=== PATIENT | male | born 1940 | race Caucasian/White ===

== ENCOUNTER → 2016-11-24 | Outpatient (CLI) | payer OTHER, BC ==
[~2016-11-24] MED LIST: ASPEC325 PO; BIOT1TAB5 PO; CLR10 PO; CYAN10005 PO; FLNIN NAE; LEVO88TA3 PO; LISI-725 PO; MOME0.1O TOP; MRLP17 PO; NTRGSL/4 UT; PRLSR20 PO; SIMV40TA2 PO
== END | disposition home or self-care (01) ==
LOC: C.RDSM 08:18
PROVIDERS: ATTEND Physical Medicine & Rehabilitation Sports Medicine
DX: M16.0 Bilateral primary osteoarthritis of hip (principal)

== ENCOUNTER → 2016-12-31 | Day surgery (SDC) | payer OTHER, BC ==
[2016-12-11 11:42] VITALS: Ht 185.4 cm; Wt 88.6 kg
[~2016-12-31] VITALS: Ht 185.4 cm; Wt 88.6 kg
[~2016-12-31] MED LIST changes: +EpINEphrine INJ 1MG/ML AMP 1 MG/ML AMP ONE; +IOPAMIDOL INJ 61% 15 ML VIAL ONE; +LIDOCAINE 4% OP SOLN DROP CHARGE ONE; +LIDOCAINE HCL 1% MPF 2 ML VIAL ONE; +LIDOCAINE HCL 1% MPF 5 ML VIAL ONE; +MOXIFLOXACIN OPH SOLN PER DROP CHARGE ONE; +POVIDONE-IODINE OP SOLN 30 ML BTL ONE; +SODIUM CHLORIDE 0.9% INJ 10 ML VIAL ONE; +TOBRAMYCIN/DEXAMETHASONE OPH OINT PER APPLN CHARGE ONE
--- NOTE | 2016-12-31 12:36 | History & Physical Bridge - [place] ---
H&P Re-Evaluation Bridge Note: I have examined the patient, reviewed the History & Physical and in the interval since the performance of the History & Physical I have noted the following changes of clinical significance: No changes noted
[2016-12-31 13:03] VITALS: TEMP 37.3
--- NOTE | 2016-12-31 13:07 | Discharge Instructions ---
Discharge Instructions Date of Service December 31, 2016. Visit Reason for Visit: Lumbar Spinal Stenosis Discharge Discharge Diagnosis / Problem: left leg pain Discharge Goals Goal(s): Decrease discomfort, Improve function Medications Stopped Medications Name(s): asa stopped last dose on thursday. Activity Recommendations Activity Limitations: resume your previous activity Anesthesia . Post Anesthesia Instructions: If you have had General Anesthesia or IV Sedation: * Do not drive today. * Resume driving when surgeon permits. * Do not make important decisions or sign legal documents today. * Call surgeon for: 1. Temperature elevations greater than 101 degrees F. 2. Uncontrollable pain. 3. Excessive bleeding. 4. Persistent nausea and vomiting. 5. Medication intolerance (nausea, vomiting or rash). * For nausea and vomiting use only clear liquids such as: tea, soda, bouillon until nausea subsides, then gradually increase diet as tolerated. * If you have any concerns or questions, call your surgeon's office. If physician is unavailable and it is an emergency, call 911 or go to the nearest emergency room. . Diet Recommendations Recommended Home Diet: resume previous diet Procedures Procedures Performed: Lumbar Epidural Steroid Injection Pending Studies Studies pending at discharge: no Medical Emergencies . Who to Call and When: Medical Emergencies: If at any time you feel your situation is an emergency, please call 911 immediately. . Non-Emergent Contact Non-Emergency issues call your: Specialist . . "Provider Documentation" section prepared by Ravi Nair. .
[2016-12-31 13:13] VITALS: BP 152/76; PULSE 63; O2SAT 99
--- NOTE | 2016-12-31 14:19 | OPERATIVE REPORT ---
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 POSTOPERATIVE DIAGNOSIS: Same. PROCEDURE: Left paramedian L4-L5 interlaminar epidural steroid injection under fluoroscopic guidance. SURGEON: Dr. Ravi Nair. INDICATIONS: The patient is a 76-year-old white male who presents today for an epidural injection. He has had similar radicular complaints down the right leg and responded to an epidural a year or more ago without recurrence of this pain. He reports that this pain is similar in nature, but it on the left side and its more on the medial aspect of the thigh and not the lateral aspect. He presents today for an epidural injection as he has not responded to conservative treatments including ongoing core strengthening program. PHYSICAL EXAMINATION: Pleasant male seated comfortably. He is nontender to palpation of the lower lumbar spine. He has no focal weakness. Negative seated straight leg raises. He has intact sensation distally. CONSENT: Verbal and written consent was obtained from the patient. Risks and benefits were reviewed. Risks include but are not limited to epidural abscess, epidural hematoma, allergic reaction, dural puncture. The patient wishes to proceed. PROCEDURE: The patient was taken back in the special procedures room of the [facility] where he was maintained in a prone position. Backside was cleansed with Betadine x3 and a dry sterile dressing was applied. Fluoroscope was used to identify the L4-L5 interlaminar space. Overlying skin on the left side was anesthetized with 4 mL of lidocaine 1% with a 25 gauge 1.5-inch needle. A 22-gauge 3.5 inch spinal needle was then directed towards the intralaminar space. It was advanced under lateral fluoroscopic guidance. Loss of resistance was noted at a depth of 5.5 cm. Isovue 300 contrast 3/4 of mL was injected in which demonstrated epidural uptake pattern which was confirmed with both AP and lateral views. He then underwent injection after negative aspiration of 40 mg of Depo-Medrol and 4 mL of preservative free sodium chloride. Injection was well tolerated and reproduced a familiar transient discomfort into the medial thigh. DISPOSITION: 1. The patient is taken out into the discharge recovery area where he will be discharged home once discharge criteria have been met. 2. Follow up in the [facility] office in 2-4 weeks. I attest to the content of the Intraoperative Record and any orders documented therein. Any exceptio ns are noted below.
== END | disposition home or self-care (01) ==
LOC: X.SURG 12:16
PROVIDERS: ATTEND Physical Medicine & Rehabilitation
DX: M51.86 Other intervertebral disc disorders, lumbar region (principal); M48.06 Spinal stenosis, lumbar region; I10 Essential (primary) hypertension; E78.5 Hyperlipidemia, unspecified; K21.9 Gastro-esophageal reflux disease without esophagitis; I25.10 Atherosclerotic heart disease of native coronary artery without angina pectoris; Z90.49 Acquired absence of other specified parts of digestive tract; Z96.652 Presence of left artificial knee joint; Z95.1 Presence of aortocoronary bypass graft; Z79.82 Long term (current) use of aspirin; Z82.49 Family history of ischemic heart disease and other diseases of the circulatory system; Z82.3 Family history of stroke

== ENCOUNTER → 2017-07-02 | Outpatient (CLI) | payer OTHER, BC ==
[~2017-07-02] MED LIST changes: -EpINEphrine INJ 1MG/ML AMP 1 MG/ML AMP ONE; -IOPAMIDOL INJ 61% 15 ML VIAL ONE; -LIDOCAINE 4% OP SOLN DROP CHARGE ONE; -LIDOCAINE HCL 1% MPF 2 ML VIAL ONE; -LIDOCAINE HCL 1% MPF 5 ML VIAL ONE; -MOXIFLOXACIN OPH SOLN PER DROP CHARGE ONE; -MRLP17 PO; -NTRGSL/4 UT; -POVIDONE-IODINE OP SOLN 30 ML BTL ONE; -SODIUM CHLORIDE 0.9% INJ 10 ML VIAL ONE; -TOBRAMYCIN/DEXAMETHASONE OPH OINT PER APPLN CHARGE ONE
--- NOTE | 2017-07-02 14:35 | DIAGNOSTIC IMAGING REPORT ---
LUMBAR SPINE MIN 4 VIEWS HISTORY: 77 years-old Male LUMBAR STENOSIS L3-L4 lumbar stenosis COMPARISON: Lumbar spine radiographs 06/22/2014 TECHNIQUE: Frontal and lateral views of lumbar spine. Lateral views obtained in flexion, extension and neutral position for a total of 4 images FINDINGS: 5 nonrib-bearing lumbar-type vertebral segments are present. There is straightening of the normal lumbar lordosis.There is 6 mm retrolisthesis L5 on S1 and 2 mm anterolisthesis L3 on L4. Moderate intervertebral disc space narrowing at L3-L4, L4-L5 and L5-S1 with moderate facet arthropathy. 35% anterior endplate compression of T12 appears unchanged. No acute compression of bony. Intervertebral disc space narrowing noted within the lower thoracic spine. No acute fracture. No change in alignment with flexion or extension. IMPRESSION: 1. No acute fracture of the lumbar spine. 2. Remote compression deformity of T12. 3. Moderate intervertebral disc space narrowing and facet arthropathy of the lower lumbar spine. The above report was generated using voice recognition software. It may contain grammatical, syntax or spelling errors. Electronically signed by: Raymond Hernández M.D. 07/02/2017 2:34 PM Dictated Date/Time: 07/02/2017 2:25 PM
== END | disposition home or self-care (01) ==
LOC: C.RDSM 14:06
PROVIDERS: ATTEND Neurological Surgery
DX: M48.061 Spinal stenosis, lumbar region without neurogenic claudication (principal); M53.84 Other specified dorsopathies, thoracic region

== ENCOUNTER → 2017-12-22 | Outpatient (CLI) | payer OTHER, BC | END | disposition home or self-care (01) | LOC: C.PATHSPEC 17:15 | PROVIDERS: ATTEND Physician Assistant | DX: L82.1 Other seborrheic keratosis (principal) ==

== ENCOUNTER 2018-11-02 10:27 | Inpatient (IN) ==
[2018-11-02] MEDS ORDERED: ONDANSETRON INJ 2 MG/ML 2 ML VIAL IV STA (10:40)
[2018-11-02] MEDS ORDERED: SODIUM CHLORIDE 0.9% 1000ML 2,000 ML IV ONE (10:40)
[2018-11-02] MEDS ORDERED: MoRPHine SULFATE 10 MG/ML CARP/VIAL IV STA (10:40)
[2018-11-02 10:47] LABS: Hematocrit (blood only) 40.8 % (42-52); Hemoglobin 14.1 g/dL (14.0-18.0); Mean Corpuscular Hgb Conc 34.6 g/dL (32-36); Mean Platelet Volume 10.4 fL (7.4-10.4); Platelet Count 152 K/uL (130-400); RDW Standard Deviation 45.5 fL (36.4-46.3); Red Blood Count 4.25 M/uL (4.7-6.1); White Blood Count 12.45 K/uL (4.8-10.8)
[2018-11-02 10:56] LABS: INR 1.1 (0.9-1.1); Prothrombin Time 11.2 Seconds (9.0-12.0)
[2018-11-02 11:10] LABS: Albumin Level 3.8 gm/dl (3.4-5.0); BUN Creatinine Ratio 12.6 (10-20); Calcium 9.7 mg/dl (8.5-10.1); Est GFR (African American) 32.6; Est GFR (Non-African American) 28.2; Potassium 3.2 mmol/L (3.5-5.1)
[2018-11-02 11:15] LABS: Basophils # (auto) 0.02 K/uL (0-0.2); Basophils % (auto) 0.2 %; Eosinophils # (auto) 0.21 K/uL (0-0.5); Eosinophils % (auto) 1.7 %; Immature Granulocytes # (auto) 0.05 K/uL (0.00-0.02); Immature Granulocytes % (auto) 0.4 %; Lymphocytes # (auto) 3.85 K/uL (1.2-3.4); Lymphocytes % (auto) 30.9 %; Monocytes # (auto) 0.23 K/uL (0.11-0.59); Monocytes % (auto) 1.8 %; Neutrophils # (auto) 8.09 K/uL (1.4-6.5)
[2018-11-02 11:15] LABS: Appearance Urine Clear (Clear); Bilirubin Urine Negative (Negative); Blood Urine Negative (Negative); Color Urine Yellow; Glucose Urine UA Negative (Negative); Ketones Urine Negative (Negative); Leukocyte Esterase Urine Negative (Negative); Nitrite Urine Negative (Negative); Protein Urine Negative (Negative); Specific Gravity Urine 1.016 (1.000-1.030); Urobilinogen Urine Negative (Negative); pH Urine 5.5 (4.5-7.5)
[2018-11-02 11:19] LABS: Albumin Globulin Ratio 0.8 (0.9-2); Bilirubin,Total 0.8 mg/dl (0.2-1); Globulin 4.7 gm/dl (2.5-4.0); Total Protein 8.5 gm/dl (6.4-8.2); Troponin I 0.065 ng/ml (0-0.045)
[2018-11-02] MEDS ORDERED: HYDROmorphone INJ 0.5 MG/0.5 ML SYR IV STA (11:38)
[2018-11-02] MEDS ORDERED: ASPIRIN CHEW 324 MG PO STA (12:39)
[2018-11-02] MEDS ORDERED: TAP WATER ENEMA PR ONE (13:09)
--- NOTE | 2018-11-02 13:26 | CT Scan Report ---
CT OF THE ABDOMEN AND PELVIS WITHOUT CONTRAST CLINICAL HISTORY: Severe abdominal pain. COMPARISON STUDY: No previous studies for comparison. TECHNIQUE: Axial images of the abdomen and pelvis were obtained without IV contrast. Images were revi ewed in the axial, sagittal, and coronal planes. Automated exposure control was utilized for the tania dy. A dose lowering technique was utilized adhering to the principles of ALARA. FINDINGS: A small hiatal hernia is noted. Evaluation of the abdomen and pelvis is suboptimal on this unenhanced examination. A probable 9 mm medial segment hepatic cyst is noted. There is slight nodular ity of the liver surface. The gallbladder is likely surgically absent. There is no peripancreatic inf iltration. The spleen is diminutive. There is no hydronephrosis. No renal, ureteral or bladder calcul i are present. Note is made of a 3.4 cm infrarenal abdominal aortic aneurysm. There is no evidence fo r rupture. No pneumatosis, free air or portal venous gas is present. There is a large amount of stool within the rectum. There is a moderate amount of stool within the left colon. There is mild pericolo juaquin infiltration. The sigmoid colon is redundant however there is no evidence for a volvulus at this time. No colonic transition point is noted. The appendix is normal. Postoperative findings within the lumbar spine are noted. Several old lower thoracic and lumbar spine compression fractures are noted. There are no suspicious osseous lesions. IMPRESSION: 1. Large amount of stool within the rectum and moderate amount of stool within the left colon. Mild c olonic dilatation without transition point to suggest bowel obstruction. Redundant sigmoid colon with out evidence for volvulus at this time. Mild infiltration adjacent to the left colon suggests a nonsp ecific colitis. No significant bowel wall thickening. 2. 3.4 cm infrarenal abdominal aortic aneurysm. 3. Small hiatal hernia. 4. Suspected cirrhosis. Electronically signed by: Bipin Kwan M.D. 11/02/2018 1:25 PM
[2018-11-02] MEDS ORDERED: ACETAMINOPHEN 325 MG TAB PO PRN (16:10)
[2018-11-02] MEDS: POLYETHYLENE (MIRALAX) 17 GM PACK PO SCH (16:43)
--- NOTE | 2018-11-02 16:50 | Emergency Department Note ---
Entered by Daisha Christianson acting as a scribe for History of Present Illness General Chief complaint: Abdominal Pain Stated complaint: abd pain Source: patient History of Present Illness Provider complaint: lower abdominal pain Onset (ago): hour(s) (2-3 hours prior to arrival) Location: abdomen Pain Consistency: + constant Quality: + other (pain) Associated symptoms: + nausea/vomiting and + other (trouble with bowels and trouble urinating, testicular pain) The patient is a 78 year old male who presents to the Emergency Room with complaints of constant lower abdominal pain beginning this morning about 2-3 hours prior to arrival. The patient states that he has never had abdominal pain this bad. The patient states that he is having trouble with his bowels and is also having trouble urinating. He states that he last urinated and last had a bowel movement yesterday. He also reports that he vomited this morning and reports having testicular pain. The patient denies a history of previous abdominal surgeries. No other exacerbating or remitting factors. He does note that he does feel as though he has to go to the bathroom. Home Medications Home Medications Medication Instructions Recorded Confirmed Type acetaminophen 650 mg PO Q6H PRN 11/02/18 11/02/18 History aspirin [Aspir-81] 81 mg PO DAILY 11/02/18 11/02/18 History biotin 5 mg PO DAILY 11/02/18 11/02/18 History cyanocobalamin (vitamin B-12) 1,000 mcg PO DAILY 11/02/18 11/02/18 History herbal drugs [Colon Herbal 1 cap PO PRN 11/02/18 History Cleanser] levothyroxine 88 mcg PO DAILY 11/02/18 11/02/18 History lisinopril 20 mg PO DAILY 11/02/18 11/02/18 History loratadine [Claritin] 10 mg PO DAILY 11/02/18 11/02/18 History omeprazole 20 mg PO DAILY 11/02/18 11/02/18 History simvastatin 40 mg PO PM 11/02/18 11/02/18 History tramadol 0 mg PO PRN 11/02/18 History Allergies Allergy/AdvReac Type Severity Reaction Status Date / Time No Known Drug Allergies Allergy Unknown . Verified 11/02/18 11:06 Past Med/Surg History Medical History Pneumothorax (Resolved) Family History Other No pertinent family history Social History Feels Safe at Home: Yes Smoking Status: Never smoker Review of Systems See HPI for pertinent positives & negatives. and A total of 10 systems reviewed and were otherwise negative Physical Exam Vital Signs Vital Signs - 24 hr 11/02/18 10:34 11/02/18 12:34 11/02/18 14:00 Temperature 36.7 C Temperature Source Axillary Sepsis Recent Fever Within 48 Hours No Sepsis New/Unexplained Change in Mental Status No Sepsis Action Taken by Nursing No Action Required Pulse Rate 114 H Pulse Rate [Right Finger] 117 H 93 H Respiratory Rate 42 H 21 20 Respiratory Effort / Characteristics Non-Labored Non-Labored Spontaneous Respiratory Depth Normal Normal Respiratory Pattern Regular Regular Blood Pressure 101/66 Blood Pressure [Right Arm] 180/107 H 112/55 L Blood Pressure Mean 77 Blood Pressure Mean [Right Arm] 131 74 Blood Pressure Position [Right Arm] Lying Lying Pulse Oximetry 97 98 93 Oxygen Delivery Method Room Air Room Air Room Air 11/02/18 16:05 Temperature Temperature Source Sepsis Recent Fever Within 48 Hours Sepsis New/Unexplained Change in Mental Status Sepsis Action Taken by Nursing Pulse Rate Pulse Rate [Right Finger] Respiratory Rate Respiratory Effort / Characteristics Respiratory Depth Respiratory Pattern Blood Pressure Blood Pressure [Right Arm] Blood Pressure Mean Blood Pressure Mean [Right Arm] Blood Pressure Position [Right Arm] Pulse Oximetry 95 Oxygen Delivery Method Room Air GENERAL: Laying in bed, rolling around, in moderate distress, holding abdomen. EYE EXAM: normal conjunctiva. OROPHARYNX: no exudate, no erythema, lips, buccal mucosa, and tongue normal and mucous membranes are moist NECK: supple, no nuchal rigidity, no adenopathy, non-tender LUNGS: Clear to auscultation. Normal chest wall mechanics HEART: no murmurs, S1 normal and S2 normal ABDOMEN: abdomen soft, tenderness to palpation to the suprapubic region, normo- active bowel, sounds, no masses, no rebound or guarding. BACK: Back is symmetrical on inspection and there is no deformity, no midline tenderness, no CVA tenderness. SKIN: no rashes and no bruising UPPER EXTREMITIES: upper extremities are grossly normal. LOWER EXTREMITIES: No pitting edema. NEURO EXAM: Normal sensorium, cranial nerves II-XII grossly intact, normal speech, no gross weakness of arms, no gross weakness of legs. Course ED COURSE: Vital signs were reviewed and showed tachycardia. The patients medical record was reviewed The above diagnostic studies were performed and reviewed. ED treatments and interventions as stated above. 1031: The patient was evaluated in room C12A. A complete history and physical examination was performed. 1035: I performed a limited bedside ultrasound that shows distension. 1336: I updated the patient who verbalized agreement and understanding of the treatment plan. 1343: I discussed the patient's case with Jadyn Larry who will evaluate the patient for further management. Consultations Consultation #1: Jadyn Larry Time: 13:43 Administered Medications Polyethylene Glycol (Miralax Powder Packet) 17 gm PO DAILY RICH Stop: 12/02/18 16:09 Last Admin: 11/02/18 16:43 Dose: Not Given Documented by: [id number] Discontinued Medications Aspirin (Aspirin) 324 mg PO NOW STA Stop: 11/02/18 12:40 Last Admin: 11/02/18 12:53 Dose: 324 mg Documented by: [id number] Sodium Chloride (Nss 1000ml) 2,000 mls @ 999 mls/hr IV .Q2H1M ONE Stop: 11/02/18 12:40 Last Infusion: 11/02/18 14:29 Dose: 0 mls/hr Documented by: [id number] Admin: 11/02/18 11:07 Dose: 999 mls/hr Documented by: [id number] Miscellaneous (Tap Water Enema) 1 ea NC ONE ONE Stop: 11/02/18 13:10 Last Admin: 11/02/18 14:29 Dose: 1 ea Documented by: [id number] Morphine Sulfate (Morphine Sulfate) 6 mg IV NOW STA Stop: 11/02/18 10:41 Last Admin: 11/02/18 11:06 Dose: 6 mg Documented by: [id number] Ondansetron HCl (Zofran) 4 mg IV NOW STA Stop: 11/02/18 10:41 Last Admin: 11/02/18 11:06 Dose: 4 mg Documented by: [id number] Medical Decision Making Differential Diagnosis Differential diagnoses includes but is not limited to gastritis, peptic ulcer disease, GERD, gallbladder disease, pancreatitis, small bowel obstruction, acute coronary syndrome, pericarditis, ischemic bowel, irritable bowel disease, irritable bowel syndrome, appendicitis, diverticulitis, malignancy, hernia, u rinary tract infection, torsion, , perforation, trauma, infectious. Medical Records Attestation: I reviewed the patient's medical records. Home Medications Current Medication List: was personally reviewed by me Laboratory Data Attestation: I reviewed the patient's lab results. Result diagrams: 11/02/18 10:30 11/02/18 10:30 Lab Results 11/02/18 11/02/18 11/02/18 Range/Units 10:30 10:30 10:30 WBC 12.45 H (4.8-10.8) K/uL RBC 4.25 L (4.7-6.1) M/uL Hgb 14.1 (14.0-18.0) g/dL Hct 40.8 L (42-52) % MCV 96.0 (80-100) fL MCH 33.2 (25-34) pg MCHC 34.6 (32-36) g/dL RDW Std Deviation 45.5 (36.4-46.3) fL RDW Coeff of Araceli 13.0 (11.5-14.5) % Plt Count 152 (130-400) K/uL MPV 10.4 (7.4-10.4) fL Immature Gran % (Auto) 0.4 % Neut % (Auto) 65.0 % Lymph % (Auto) 30.9 % [place] % (Auto) 1.8 % Eos % (Auto) 1.7 % Baso % (Auto) 0.2 % Immature Gran # (Auto) 0.05 H (0.00-0.02) K/uL Neut # (Auto) 8.09 H (1.4-6.5) K/uL Lymph # (Auto) 3.85 H (1.2-3.4) K/uL Hudson # (Auto) 0.23 (0.11-0.59) K/uL Eos # (Auto) 0.21 (0-0.5) K/uL Baso # (Auto) 0.02 (0-0.2) K/uL PT 11.2 (9.0-12.0) Seconds INR 1.1 (0.9-1.1) Sodium 133 L (136-145) mmol/L Potassium 3.2 L (3.5-5.1) mmol/L Chloride 100 (98-107) mmol/L Carbon Dioxide 19 L (21-32) mmol/L Anion Gap 14.0 H (3-11) BUN 28 H (7-18) mg/dl Creatinine 2.18 H (0.6-1.4) mg/dl Est Cr Clr Drug Dosing 33.0 ml/min Est GFR ( Amer) 32.6 Est GFR (Non-Af Amer) 28.2 BUN/Creatinine Ratio 12.6 (10-20) Glucose 193 H (70-99) mg/dl Calcium 9.7 (8.5-10.1) mg/dl Total Bilirubin 0.8 (0.2-1) mg/dl AST 27 (15-37) U/L ALT 27 (12-78) U/L Alkaline Phosphatase 111 (45-117) U/L Troponin I 0.065 H* (0-0.045) ng/ml Total Protein 8.5 H (6.4-8.2) gm/dl Albumin 3.8 (3.4-5.0) gm/dl Globulin 4.7 H (2.5-4.0) gm/dl Albumin/Globulin Ratio 0.8 L (0.9-2) Lipase 116 (73-393) U/L Urine Color Urine Appearance (Clear) Urine pH (4.5-7.5) Ur Specific [place] (1.000-1.030) Urine Protein (Negative) Urine Glucose (UA) (Negative) Urine Ketones (Negative) Urine Blood (Negative) Urine Nitrite (Negative) Urine Bilirubin (Negative) Urine Urobilinogen (Negative) Ur Leukocyte Esterase (Negative) 11/02/18 Range/Units Unknown WBC (4.8-10.8) K/uL RBC (4.7-6.1) M/uL Hgb (14.0-18.0) g/dL Hct (42-52) % MCV (80-100) fL MCH (25-34) pg MCHC (32-36) g/dL RDW Std Deviation (36.4-46.3) fL RDW Coeff of Araceli (11.5-14.5) % Plt Count (130-400) K/uL MPV (7.4-10.4) fL Immature Gran % (Auto) % Neut % (Auto) % Lymph % (Auto) % [place] % (Auto) % Eos % (Auto) % Baso % (Auto) % Immature Gran # (Auto) (0.00-0.02) K/uL Neut # (Auto) (1.4-6.5) K/uL Lymph # (Auto) (1.2-3.4) K/uL [place] # (Auto) (0.11-0.59) K/uL Eos # (Auto) (0-0.5) K/uL Baso # (Auto) (0-0.2) K/uL PT (9.0-12.0) Seconds INR (0.9-1.1) Sodium (136-145) mmol/L Potassium (3.5-5.1) mmol/L Chloride (98-107) mmol/L Carbon Dioxide (21-32) mmol/L Anion Gap (3-11) BUN (7-18) mg/dl Creatinine (0.6-1.4) mg/dl Est Cr Clr Drug Dosing ml/min Est GFR ( Amer) Est GFR (Non-Af Amer) BUN/Creatinine Ratio (10-20) Glucose (70-99) mg/dl Calcium (8.5-10.1) mg/dl Total Bilirubin (0.2-1) mg/dl AST (15-37) U/L ALT (12-78) U/L Alkaline Phosphatase (45-117) U/L Troponin I (0-0.045) ng/ml Total Protein (6.4-8.2) gm/dl Albumin (3.4-5.0) gm/dl Globulin (2.5-4.0) gm/dl Albumin/Globulin Ratio (0.9-2) Lipase (73-393) U/L Urine Color Yellow Urine Appearance Clear (Clear) Urine pH 5.5 (4.5-7.5) Ur Specific [place] 1.016 (1.000-1.030) Urine Protein Negative (Negative) Urine Glucose (UA) Negative (Negative) Urine Ketones Negative (Negative) Urine Blood Negative (Negative) Urine Nitrite Negative (Negative) Urine Bilirubin Negative (Negative) Urine Urobilinogen Negative (Negative) Ur Leukocyte Esterase Negative (Negative) Imaging Data Radiologist's Impression: Radiology results as stated below per my review and the radiologist's interpretation: CT OF THE ABDOMEN AND PELVIS WITHOUT CONTRAST CLINICAL HISTORY: Severe abdominal pain. COMPARISON STUDY: No previous studies for comparison. TECHNIQUE: Axial images of the abdomen and pelvis were obtained without IV contrast. Images were reviewed in the axial, sagittal, and coronal planes. Automated exposure control was utilized for the study. A dose lowering technique was utilized adhering to the principles of ALARA. FINDINGS: A small hiatal hernia is noted. Evaluation of the abdomen and pelvis is suboptimal on this unenhanced examination. A probable 9 mm medial segment hepatic cyst is noted. There is slight nodularity of the liver surface. The gallbladder is likely surgically absent. There is no peripancreatic infiltration. The spleen is diminutive. There is no hydronephrosis. No renal, ureteral or bladder calculi are present. Note is made of a 3.4 cm infrarenal abdominal aortic aneurysm. There is no evidence for rupture. No pneumatosis, free air or portal venous gas is present. There is a large amount of stool within the rectum. There is a moderate amount of stool within the left colon. There is mild pericolonic infiltration. The sigmoid colon is redundant however there is no evidence for a volvulus at this time. No colonic transition point is noted. The appendix is normal. Postoperative findings within the lumbar spine are noted. Several old lower thoracic and lumbar spine compression fractures are noted. There are no suspicious osseous lesions. IMPRESSION: 1. Large amount of stool within the rectum and moderate amount of stool within the left colon. Mild colonic dilatation without transition point to suggest bowel obstruction. Redundant sigmoid colon without evidence for volvulus at this time. Mild infiltration adjacent to the left colon suggests a nonspecific colitis. No significant bowel wall thickening. 2. 3.4 cm infrarenal abdominal aortic aneurysm. 3. Small hiatal hernia. 4. Suspected cirrhosis. Electronically signed by: Bipin Kwan M.D. 11/02/2018 1:25 PM ECG Data Attestation: I personally reviewed and interpreted this ECG as follows: Indication: abdominal pain Rate (beats per minute): 114 Rhythm: sinus tachycardia Findings: + nonspecific-ST abn (in high lateral leads), + RBBB and + left axis deviation Comparison ECG Date: from (08/2013) Change: the following changes noted (RBBB is new, LAD is old, high lateral changes are new ) Blood Pressure Blood Pressure Findings: Normal blood pressure MDM Narrative Patient is a 78-year-old male that presents the ER for pelvic pain in the suprapubic region. Bedside ultrasound does show his bladder is mildly distended. IV was established and labs were obtained. Mild leukocytosis of 12.4 thousand. No significant anemia. INR was negative. BMP with a creatinine of 2.18 up from baseline of 1.6. Mild hypokalemia and hyponatremia. CO2 was slightly low at 19 as well. Troponin was detectable at 0.065. Lipase is norm al. UA was unremarkable along a straight cath of 400 mL's. EKG. Show a new right bundle from previous. Patient was given aspirin. CT of the abdomen pelvis confirmed large amount of constipation. Patient was given a soapsuds enema and had significant improvement of his symptoms. He was updated bedside. Patient again denies any chest pain or shortness of breath. Do favor elevated troponin is likely stress induced or type II ischemia. Patient was updated bedside and admitted to the hospitalist for further workup. Impression & Plan Elevated troponin, Abdominal pain, Constipation, New onset right bundle branch block (RBBB), ELIZABETH (acute kidney injury) Discharge Plan Visit Data *Final* Discharge Date/Time: 11/02/18 16:05 Chief Complaint: Abdominal Pain Stated Complaint: abd pain ED Provider: Ishan Grissom Discharge Problem: Elevated troponin, Abdominal pain, Constipation, New onset right bundle branch block (RBBB), ELIZABETH (acute kidney injury) Patient Disposition: Admitted As Inpatient Discharge Instructions Interventions: ED Discharge Assessment Last Done: 11/02/18 16:05 Discharge Problem: Abdominal pain Qualifiers: Abdominal location: unspecified location Qualified Code(s): R10.9 - Unspecified abdominal pain Constipation Qualifiers: Constipation type: unspecified constipation type Qualified Code(s): K59.00 - Constipation, unspecified The scribe's documentation has been prepared under my direction and personally reviewed by me in its entirety. I confirm that the note above accurately reflects all work, treatment, procedures, and medical decision making performed by me.
[2018-11-02] MEDS: SODIUM CHLORIDE 0.9% 1000ML 1,000 ML IV SCH (17:06)
--- NOTE | 2018-11-02 17:50 | History & Physical Report ---
Date of Service November 02, 2018 Assessment & Plan (1) Elevated troponin: (2) CAD (coronary artery disease): -Admit to telemetry -Patient presenting from home with reports of severe lower abdominal pain, CT ABD/pelvis performed in the ED demonstrated a large amount of stool in the colon -Incidentally, patient was found to have a mildly elevated troponin at 0.065, EKG without acute ST changes -History of CAD, S/P CABG x1 in 1998 -No reports of chest pain -Troponin elevation likely due to some mild demand ischemia or ELIZABETH from dehydration -Continue to cycle cardiac enzymes, check resting echo -Continue aspirin; holding RM inhibitor for now due to ELIZABETH (3) CKD (chronic kidney disease), stage III: (4) ELIZABETH (acute kidney injury): -Likely prerenal nature -IVF, will hold RM inhibitor -Monitor renal functions, avoid nephrotoxic agents when able -Noted baseline creatinine runs in the mid ones (5) Constipation: -CT ABD/pelvis performed in the ED demonstrated a large amount of stool in the colon -Likely secondary to recent tramadol use for back pain -Received a soapsuds enema in the ED with subsequent bowel movement and improvement in symptoms -will start patient on bowel regimen with MiraLAX and Colace (6) Hypokalemia: -Potassium 3.2 -Replace, monitor (7) Prolonged QT interval: -QTc 518 -Monitor daily EKG -avoid QTC prolonging agents (8) Hypertension: -Initially hypertensive, likely situational secondary to pain -Holding RM inhibitor for now due to ELIZABETH, provide alternative antihypertensive medication if needed (9) Bifascicular block: -Stable, unchanged (10) GERD (gastroesophageal reflux disease): -Continue PPI (11) S/P TAVR (transcatheter aortic valve replacement): -Stable, no acute issues (12) AAA (abdominal aortic aneurysm): -Stable on CT scan today (13) Hypothyroidism: -Continue levothyroxine (14) DVT prophylaxis: -SQ heparin History of Present Illness Chief Complaint: Abdominal pain Primary Care Provider: April Guthrie DO 78-year-old male who presents to the ED with abdominal pain. Patient reports he woke up this morning and had lower abdominal discomfort. Of note, patient has been taking tramadol for increasing back pain over the past couple of weeks. He reports this normally causes constipation for him so he started taking an herbal supplement "colon cleanse" this week. He reports a bowel movement yesterday however was smaller than normal. He reports urinating without difficulty. He reports the back pain has been chronic since his surgery in August 2017. He had been participating in therapy, however 2 weeks ago was at work and twisted and developed increasing back pain. He reports chronic lower extremity weakness which is unchanged from his surgery in August 2017. He denies any bowel or bladder incontinence. No numbness or tingling to lower extremities. He denies chest pain and shortness of breath. No lightheadedness, dizziness, diaphoresis, syncopal events. He denies fevers and chills. No urinary symptoms. In the ED, patient underwent CT ABD/pelvis there is showing a large amount of stool within the colon. He received a soapsuds enema and has since had a bowel movement and reports marked improvement in his symptoms. Labs show a mild hypokalemia with potassium 3.2, creatinine 2.18 (baseline runs in the mid ones), initial troponin 0 0.065. EKG does not show any acute ST changes. Allergies Allergy/AdvReac Type Severity Reaction Status Date / Time No Known Drug Allergies Allergy Unknown . Verified 11/02/18 11:06 Home Medications Home Medications Medication Instructions Recorded Confirmed Type acetaminophen 650 mg PO Q6H PRN 11/02/18 11/02/18 History aspirin [Aspir-81] 81 mg PO DAILY 11/02/18 11/02/18 History biotin 5 mg PO DAILY 11/02/18 11/02/18 History cyanocobalamin (vitamin B-12) 1,000 mcg PO DAILY 11/02/18 11/02/18 History herbal drugs [Colon Herbal 1 cap PO PRN 11/02/18 History Cleanser] levothyroxine 88 mcg PO DAILY 11/02/18 11/02/18 History lisinopril 20 mg PO DAILY 11/02/18 11/02/18 History loratadine [Claritin] 10 mg PO DAILY 11/02/18 11/02/18 History omeprazole 20 mg PO DAILY 11/02/18 11/02/18 History simvastatin 40 mg PO PM 11/02/18 11/02/18 History tramadol 0 mg PO PRN 11/02/18 History Past Med/Surg History Medical History Bifascicular block (Chronic) CKD (chronic kidney disease), stage III (Chronic) GERD (gastroesophageal reflux disease) (Chronic) Carotid stenosis (Chronic) AAA (abdominal aortic aneurysm) (Chronic) Hypertension (Chronic) CAD (coronary artery disease) (Chronic) Dyslipidemia (Chronic) Hypothyroidism (Chronic) Surgical History History of total left hip replacement (Chronic) History of laminectomy (Chronic) Hx of cholecystectomy (Chronic) Hx of tonsillectomy (Chronic) History of total left knee replacement (Chronic) S/P TAVR (transcatheter aortic valve replacement) (Chronic) Family History Other No pertinent family history Social History Preferred Language: Upper Sorbian Communication Ability: 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 Beliefs That Will Affect Care: None Current Living Situation: Alone Other Information That Helps Us Care for You: No Feels Safe at Home: Yes Smoking Status: Former smoker Hx Alcohol Use: Yes Hx Substance Use: No Review of Systems ROS per HPI, all other systems reviewed and negative Physical Exam Vital Signs (Past 24 Hours): Last Vital Signs Temp 36.7 C 11/02/18 10:34 Pulse 93 H 11/02/18 14:00 Resp 20 11/02/18 14:00 BP 112/55 L 11/02/18 14:00 Pulse Ox 95 11/02/18 16:05 Constitutional: WD/WN, vitals as above Eyes: PERRL, conjunctivae normal, anicteric sclerae ENMT: external ear and nose normal, oropharynx normal Respiratory: normal respiratory effort, lungs clear to auscultation Cardiovascular: Rate/Rhythm: regular rate and regular rhythm Heart Sounds: + murmur (Systolic, grade 1/6) Vessels: normal peripheral pulses Ext remities: no edema Gastrointestinal (Abdomen): normal bowel sounds, soft, nontender, no hepatosplenomegaly Musculoskeletal: no cyanosis or clubbing, extremities motor strength 5/5 Skin: no rashes, warm and dry Neurologic: PERRL, EOMI, accommodation nl, no face palsy, no dysarthria Psychiatric: A+Ox3, euthymic affect Results & Data Laboratory Results Laboratory Last Values WBC 12.45 K/uL (4.8-10.8) H 11/02/18 10:30 RBC 4.25 M/uL (4.7-6.1) L 11/02/18 10:30 Hgb 14.1 g/dL (14.0-18.0) 11/02/18 10:30 Hct 40.8 % (42-52) L 11/02/18 10:30 MCV 96.0 fL (80-100) 11/02/18 10:30 MCH 33.2 pg (25-34) 11/02/18 10:30 MCHC 34.6 g/dL (32-36) 11/02/18 10:30 RDW Std Deviation 45.5 fL (36.4-46.3) 11/02/18 10:30 RDW Coeff of Araceli 13.0 % (11.5-14.5) 11/02/18 10:30 Plt Count 152 K/uL (130-400) 11/02/18 10:30 MPV 10.4 fL (7.4-10.4) 11/02/18 10:30 Immature Gran % (Auto) 0.4 % 11/02/18 10:30 Neut % (Auto) 65.0 % 11/02/18 10:30 Lymph % (Auto) 30.9 % 11/02/18 10:30 [place] % (Auto) 1.8 % 11/02/18 10:30 Eos % (Auto) 1.7 % 11/02/18 10:30 Baso % (Auto) 0.2 % 11/02/18 10:30 Immature Gran # (Auto) 0.05 K/uL (0.00-0.02) H 11/02/18 10:30 Neut # (Auto) 8.09 K/uL (1.4-6.5) H 11/02/18 10:30 Lymph # (Auto) 3.85 K/uL (1.2-3.4) H 11/02/18 10:30 [place] # (Auto) 0.23 K/uL (0.11-0.59) 11/02/18 10:30 Eos # (Auto) 0.21 K/uL (0-0.5) 11/02/18 10:30 Baso # (Auto) 0.02 K/uL (0-0.2) 11/02/18 10:30 PT 11.2 Seconds (9.0-12.0) 11/02/18 10:30 INR 1.1 (0.9-1.1) 11/02/18 10:30 Sodium 133 mmol/L (136-145) L 11/02/18 10:30 Potassium 3.2 mmol/L (3.5-5.1) L 11/02/18 10:30 Chloride 100 mmol/L (98-107) 11/02/18 10:30 Carbon Dioxide 19 mmol/L (21-32) L 11/02/18 10:30 Anion Gap 14.0 (3-11) H 11/02/18 10:30 BUN 28 mg/dl (7-18) H 11/02/18 10:30 Creatinine 2.18 mg/dl (0.6-1.4) H 11/02/18 10:30 Est Cr Clr Drug Dosing 33.0 ml/min 11/02/18 10:30 Est GFR ( Amer) 32.6 11/02/18 10:30 Est GFR (Non-Af Amer) 28.2 11/02/18 10:30 BUN/Creatinine Ratio 12.6 (10-20) 11/02/18 10:30 Glucose 193 mg/dl (70-99) H 11/02/18 10:30 Calcium 9.7 mg/dl (8.5-10.1) 11/02/18 10:30 Total Bilirubin 0.8 mg/dl (0.2-1) 11/02/18 10:30 AST 27 U/L (15-37) 11/02/18 10:30 ALT 27 U/L (12-78) 11/02/18 10:30 Alkaline Phosphatase 111 U/L (45-117) 11/02/18 10:30 Troponin I 0.212 ng/ml (0-0.045) H* 11/02/18 16:41 Total Protein 8.5 gm/dl (6.4-8.2) H 11/02/18 10:30 Albumin 3.8 gm/dl (3.4-5.0) 11/02/18 10:30 Globulin 4.7 gm/dl (2.5-4.0) H 11/02/18 10:30 Albumin/Globulin Ratio 0.8 (0.9-2) L 11/02/18 10:30 Lipase 116 U/L (73-393) 11/02/18 10:30 Urine Color Yellow 11/02/18 Unknown Urine Appearance Clear (Clear) 11/02/18 Unknown Urine pH 5.5 (4.5-7.5) 11/02/18 Unknown Ur Specific [place] 1.016 (1.000-1.030) 11/02/18 Unknown Urine Protein Negative (Negative) 11/02/18 Unknown Urine Glucose (UA) Negative (Negative) 11/02/18 Unknown Urine Ketones Negative (Negative) 11/02/18 Unknown Urine Blood Negative (Negative) 11/02/18 Unknown Urine Nitrite Negative (Negative) 11/02/18 Unknown Urine Bilirubin Negative (Negative) 11/02/18 Unknown Urine Urobilinogen Negative (Negative) 11/02/18 Unknown Ur Leukocyte Esterase Negative (Negative) 11/02/[address] ABD/PELVIS IMPRESSION: 1. Large amount of stool within the rectum and moderate amount of stool within the left colon. Mild colonic dilatation without transition point to suggest bowel obstruction. Redundant sigmoid colon without evidence for volvulus at this time. Mild infiltration adjacent to the left colon suggests a nonspecific colitis. No significant bowel wall thickening. 2. 3.4 cm infrarenal abdominal aortic aneurysm. 3. Small hiatal hernia. 4. Suspected cirrhosis. Code Status & VTE Plan VTE Prophylaxis Plan VTE Prophylaxis will be ordered: Yes Supervising Physician Co-Signing Physician Notes I saw this patient with the Nurse Practitioner, I participated in the history, physical, review of systems, and physical exam. I reviewed the medications with the patient and the Nurse Practitioner and helped reconcile the medications. I helped take a detailed family and social history as well. I formulated the assessment and plan personally with the Nurse Practioner went over it with the patient. ROS-No Headache, No Visual Changes, No Nausea, No Vomiting, No Fever, No Chills, No Neck Pain or Stiffness, No Chest Pain, No Palpitations, No SOB, No HUTCHISON, No Cough, No Sputum, No Wheezing, No Abdominal Pain, No Diarrhea, No Hematemesis, No Hemoptysis, No Unexpected Weight Loss, No Flank pain, No Melena, No Hematochezia, No Frequency, No Urgency, No Burning, No Hematuria, No Rashes, No Diaphoresis. Appetite is Normal, c/o constipation, abd and rectal pain Physical Exam Gen-AAO x 3, NAD, Afebrile, Pleasant Head-NCAT, EOMI, PERRLA, Anicteric Sclera, No Posterior Pharyngeal Erythema Neck-Supple, No JVD, No Thyromegaly, No Masses, No LAD, No Bruits Lungs-Clear to Auscultation Bilaterally, No Rales, No Rhonchi, No Wheezing, No Crepitus Chest-No S4, +S1, +S2, No S3, No Murmurs, No Rubs, No Gallops, No Ectopy Abdomen-Soft, Bowel Sounds Present, Tender, Non Distended, No Hepatomegaly, No Splenomegaly, No Palpable Masses, No Rebound, No Rigidity, No Guarding Musculoskeletal-Full Range of Motion Bilaterally, No CVAT Extremities-No Cyanosis, No Clubbing, No Edema Nuero-Cranial Nerves II-XII grossly intact, Motor WNL, DTRs WNL, Strength WNL, Non Focal Psych-Normal Mood (1) Constipation Constipation type: unspecified constipation type Qualified Code(s): K59.00 - Constipation, unspecified
[2018-11-02] MEDS ORDERED: POTASSIUM CHLORIDE 20 MEQ TABCR PO STA (17:51)
[2018-11-02] MEDS: DOCUSATE SODIUM 100 MG CAP PO SCH (20:57)
[2018-11-02] MEDS: SIMVASTATIN 40 MG TAB PO SCH (20:57)
[2018-11-02] MEDS: HEPARIN SOD 5,000 UNIT/0.5 ML VIAL SQ SCH (20:58)
[2018-11-02] MEDS ORDERED: PROCHLORPERAZINE 5 MG in SYRINGE 4 ML IV PRN (22:37)
[2018-11-02] MEDS ORDERED: COUGH DROP (SUGAR FREE) LOZ 24 LOZ/1 BOX BUCCAL ONE (22:42)
[2018-11-03] MEDS: SODIUM CHLORIDE 0.9% 1000ML 1,000 ML IV SCH ×3 (02:22→22:33)
[2018-11-03] MEDS: HEPARIN SOD 5,000 UNIT/0.5 ML VIAL SQ SCH ×3 (06:15→20:43)
[2018-11-03] MEDS: LEVOTHYROXINE SODIUM 88 MCG TABLET PO SCH (06:15)
[2018-11-03] MEDS: POLYETHYLENE (MIRALAX) 17 GM PACK PO SCH (08:58)
[2018-11-03] MEDS: DOCUSATE SODIUM 100 MG CAP PO SCH ×2 (08:59→20:43)
[2018-11-03] MEDS: ASPIRIN 81 MG ECTAB PO SCH (08:59)
[2018-11-03] MEDS: LORATADINE 10 MG TAB PO SCH (08:59)
[2018-11-03] MEDS: PANTOprazole 40 MG TAB PO SCH (08:59)
[2018-11-03] MEDS: CYANOCOBALAMIN 500 MCG TABLET (VITAMIN B-12) PO SCH (08:59)
[2018-11-03] MEDS ORDERED: NON-FORMULARY MEDICATION (Biotin 5 MG) PO SCH (09:00)
[2018-11-03 10:05] LABS: BUN Creatinine Ratio 15.7 (10-20); Calcium 7.9 mg/dl (8.5-10.1); Est GFR (African American) 29.1; Est GFR (Non-African American) 25.1; Potassium 4.8 mmol/L (3.5-5.1)
--- NOTE | 2018-11-03 12:01 | Hospitalist Progress Note ---
Date of Service November 03, 2018 Assessment & Plan (1) Elevated troponin: (2) CAD (coronary artery disease): Present on admission with severe abdominal tenderness Troponin on admission 0.065, trending to 0.283, then down to 0.26 Mostly due to demand ischemia from ELIZABETH and poor oral intake Denies any chest pain ECHO showed no wall motion abnormality with EF 60-65% Continue aspirin Continue monitor in tele (3) CKD (chronic kidney disease), stage III: (4) ELIZABETH (acute kidney injury): Due to dehydration Creatinine on admission 2.1, then increased to 2.4 Continue IVF Continue to hold ACEI Avoid nephrotoxic agents Monitor BMP (5) Abdominal pain: (6) Constipation: Possible due to tramadol used CT ABD/pelvis showed a large amount of stool in the colon. Mild infiltration adjacent to the left colon suggests a nonspecific colitis. Received a soapsuds enema in the ED yesterday with subsequent bowel movement and improvement in symptoms Continue MiraLAX and Colace On clear liquid diet, will advance as tolerated (7) Hypokalemia: Potassium stable Continue monitor (8) Prolonged QT interval: QTc improved Avoid QTC prolonging agents (9) Hypertension: BP in the low side Continue to hold Lisinopril (10) Bifascicular block: Stable, unchanged (11) GERD (gastroesophageal reflux disease): Continue PPI (12) S/P TAVR (transcatheter aortic valve replacement): Stable, no acute issues (13) AAA (abdominal aortic aneurysm): Stable on CT scan today (14) Hypothyroidism: Continue levothyroxine (15) DVT prophylaxis: SQ heparin CODE STATUS FULL CODE Subjective Pt was seen and examined Lying in bed with no distress Pt said that he continues to have abdominal tenderness with deep palpation He said that he only has drip of stool when tried to have a bowel movement He said that he does not have any chest pain, palpitation and SOB Physical Exam Vital Signs (Past 24 Hours): Last Vital Signs Temp 37.5 C 11/03/18 08:03 Pulse 95 H 11/03/18 08:03 Resp 20 11/03/18 08:03 BP 96/51 L 11/03/18 08:03 Pulse Ox 98 11/03/18 08:03 Physical Exam: General- No acute distress Head- atraumatic Eyes- PERRL, EOMI, ENT- oropharynx clear Neck- supple, no JVD Lungs- clear to auscultation Heart- regular rhythm; no murmur Abdomen- normal bowel sounds, mid abdominal tenderness Extremities- no calf tenderness Neuro- alert, oriented x 3; PERRL, EOMI; no facial palsy; no dysarthria Skin- warm & dry (1) Abdominal pain Abdominal location: unspecified location Qualified Code(s): R10.9 - Unspecified abdominal pain (2) Constipation Constipation type: unspecified constipation type Qualified Code(s): K59.00 - Constipation, unspecified
[2018-11-03] MEDS ORDERED: PERFLUTREN LIPID MICROSPHERE (DEFINITY) IV ONE (12:27)
[2018-11-03] MEDS ORDERED: BISACODYL 10 MG SUPP PR STA (16:28)
[2018-11-03] MEDS ORDERED: BISACODYL 10 MG SUPP PR PRN (16:28)
[2018-11-03] MEDS: SIMVASTATIN 40 MG TAB PO SCH (20:43)
[2018-11-04] MEDS: HEPARIN SOD 5,000 UNIT/0.5 ML VIAL SQ SCH ×3 (05:42→20:44)
[2018-11-04] MEDS: LEVOTHYROXINE SODIUM 88 MCG TABLET PO SCH (05:42)
[2018-11-04 06:21] LABS: Hematocrit (blood only) 29.3 % (42-52); Mean Corpuscular Hgb Conc 34.1 g/dL (32-36); Mean Corpuscular Volume 96.4 fL (80-100); RDW Coefficient of Variation 13.3 % (11.5-14.5); RDW Standard Deviation 46.5 fL (36.4-46.3); Red Blood Count 3.04 M/uL (4.7-6.1); White Blood Count 14.83 K/uL (4.8-10.8)
[2018-11-04 06:52] LABS: Mean Platelet Volume 9.7 fL (7.4-10.4); Platelet Count 87 K/uL (130-400)
[2018-11-04 06:53] LABS: Basophils # (auto) 0.02 K/uL (0-0.2); Basophils % (auto) 0.1 %; Dohle Bodies 1+; Eosinophils % (auto) 0.7 %; Immature Granulocytes # (auto) 0.06 K/uL (0.00-0.02); Immature Granulocytes % (auto) 0.4 %; Lymphocytes # (auto) 1.41 K/uL (1.2-3.4); Lymphocytes % (auto) 9.5 %; Monocytes # (auto) 0.82 K/uL (0.11-0.59); Monocytes % (auto) 5.5 %; Neutrophils # (auto) 12.42 K/uL (1.4-6.5); Neutrophils % (auto) 83.8 %; Platelet Estimate Decreased (Normal)
[2018-11-04 06:56] LABS: BUN Creatinine Ratio 18.4 (10-20); Calcium 7.5 mg/dl (8.5-10.1); Creatinine Clr Calc Pharmacy 43.1 ml/min; Est GFR (African American) 45.1; Est GFR (Non-African American) 38.9; Potassium 4.4 mmol/L (3.5-5.1)
[2018-11-04] MEDS: SODIUM CHLORIDE 0.9% 1000ML 1,000 ML IV SCH ×2 (07:17→16:19)
[2018-11-04] MEDS: LORATADINE 10 MG TAB PO SCH (08:14)
[2018-11-04] MEDS: CYANOCOBALAMIN 500 MCG TABLET (VITAMIN B-12) PO SCH (08:14)
[2018-11-04] MEDS: ASPIRIN 81 MG ECTAB PO SCH (08:14)
[2018-11-04] MEDS: DOCUSATE SODIUM 100 MG CAP PO SCH ×2 (08:14→20:47)
[2018-11-04] MEDS: PANTOprazole 40 MG TAB PO SCH (08:14)
[2018-11-04] MEDS: POLYETHYLENE (MIRALAX) 17 GM PACK PO SCH (08:15)
[2018-11-04] MEDS: CIPROFLOXACIN 500 MG TAB PO SCH ×2 (12:16→20:43)
[2018-11-04] MEDS: metroNIDAZOLE 500 MG TAB PO SCH ×2 (16:11→20:42)
--- NOTE | 2018-11-04 20:06 | Hospitalist Progress Note ---
Date of Service November 04, 2018 Assessment & Plan (1) Elevated troponin: (2) CAD (coronary artery disease): Present on admission with severe abdominal tenderness Troponin on admission 0.065, trending to 0.283, then down to 0.26 Mostly due to demand ischemia from ELIZABETH and poor oral intake Denies any chest pain ECHO showed no wall motion abnormality with EF 60-65% Continue aspirin Continue monitor in tele (3) CKD (chronic kidney disease), stage III: (4) ELIZABETH (acute kidney injury): Due to dehydration Creatinine on admission 2.1, then increased to 2.4 creatinine improved to 1.6 Continue to hold ACEI Avoid nephrotoxic agents Monitor BMP (5) Abdominal pain: (6) Constipation: Colitis Possible due to tramadol used CT ABD/pelvis showed a large amount of stool in the colon. Mild infiltration adj acent to the left colon suggests a nonspecific colitis. Received a soapsuds enema in the ED yesterday with subsequent bowel movement and improvement in symptoms Continue MiraLAX and Colace tolerated clear liquid diet Elevated WBC Starting on abx with doxycycline and flagyl Diet advanced to full liquid (7) Hypokalemia: Potassium stable Continue monitor (8) Prolonged QT interval: QTc improved Avoid QTC prolonging agents (9) Hypertension: BP in the low side Continue to hold Lisinopril (10) Bifascicular block: Stable, unchanged (11) GERD (gastroesophageal reflux disease): Continue PPI (12) S/P TAVR (transcatheter aortic valve replacement): Stable, no acute issues (13) AAA (abdominal aortic aneurysm): Stable on CT scan today (14) Hypothyroidism: Continue levothyroxine (15) DVT prophylaxis: SQ heparin CODE STATUS FULL CODE Subjective Pt was seen and examined sitting in chair with no distress Pt said that he feels much better Tolerated clear liquid diet He said that his abdominal pain improves Denies any chest pain, palpitation and SOB Physical Exam Vital Signs (Past 24 Hours): Last Vital Signs Temp 36.5 C 11/04/18 19:30 Pulse 87 11/04/18 19:30 Resp 18 11/04/18 19:30 BP 160/70 H 11/04/18 19:30 Pulse Ox 95 11/04/18 19:30 Physical Exam: General- No acute distress Head- atraumatic Eyes- PERRL, EOMI, ENT- oropharynx clear Neck- supple, no JVD Lungs- clear to auscultation Heart- regular rhythm Abdomen- normal bowel sounds, mild abdominal tenderness Extremities- no calf tenderness Neuro- alert, oriented x 3; PERRL, EOMI; no facial palsy; no dysarthria Skin- warm & dry (1) Abdominal pain Abdominal location: unspecified location Qualified Code(s): R10.9 - Unspecified abdominal pain (2) Constipation Constipation type: unspecified constipation type Qualified Code(s): K59.00 - Constipation, unspecified
[2018-11-04] MEDS: SIMVASTATIN 40 MG TAB PO SCH (20:43)
[2018-11-05] MEDS: HEPARIN SOD 5,000 UNIT/0.5 ML VIAL SQ SCH ×2 (06:28→14:09)
[2018-11-05] MEDS: LEVOTHYROXINE SODIUM 88 MCG TABLET PO SCH (06:28)
[2018-11-05 07:15] LABS: Hematocrit (blood only) 29.6 % (42-52); Hemoglobin 10.3 g/dL (14.0-18.0); Mean Corpuscular Hgb Conc 34.8 g/dL (32-36); Mean Corpuscular Volume 94.6 fL (80-100); RDW Coefficient of Variation 13.3 % (11.5-14.5); RDW Standard Deviation 46.1 fL (36.4-46.3); Red Blood Count 3.13 M/uL (4.7-6.1); White Blood Count 10.87 K/uL (4.8-10.8)
[2018-11-05 07:23] LABS: Partial Thromboplastin Ratio 1.2; Partial Thromboplastin Time 33.4 Seconds (21.0-31.0)
[2018-11-05 07:42] LABS: Mean Platelet Volume 9.9 fL (7.4-10.4); Platelet Count 79 K/uL (130-400); Platelet Estimate Decreased (Normal)
[2018-11-05 07:56] LABS: BUN Creatinine Ratio 12.8 (10-20); Calcium 8.2 mg/dl (8.5-10.1); Creatinine Clr Calc Pharmacy 50.3 ml/min; Est GFR (African American) 54.4; Est GFR (Non-African American) 46.9
[2018-11-05] MEDS: SODIUM CHLORIDE 0.9% 1000ML 1,000 ML IV SCH (08:01)
[2018-11-05] MEDS: POLYETHYLENE (MIRALAX) 17 GM PACK PO SCH (08:02)
[2018-11-05] MEDS: LORATADINE 10 MG TAB PO SCH (08:03)
[2018-11-05] MEDS: metroNIDAZOLE 500 MG TAB PO SCH ×2 (08:03→13:29)
[2018-11-05] MEDS: PANTOprazole 40 MG TAB PO SCH (08:03)
[2018-11-05] MEDS: ASPIRIN 81 MG ECTAB PO SCH (08:03)
[2018-11-05] MEDS: CYANOCOBALAMIN 500 MCG TABLET (VITAMIN B-12) PO SCH (08:03)
[2018-11-05] MEDS: DOCUSATE SODIUM 100 MG CAP PO SCH (08:07)
[2018-11-05] MEDS: CIPROFLOXACIN 500 MG TAB PO SCH (08:59)
--- NOTE | 2018-11-05 15:33 | Hospitalist Progress Note ---
Date of Service November 05, 2018 Assessment & Plan (1) Abdominal pain: (2) Constipation: Possible due to tramadol used CT ABD/pelvis showed a large amount of stool in the colon. Mild infiltration adjacent to the left colon suggests a nonspecific colitis. Received a soapsuds enema in the ED yesterday with subsequent bowel movement and improvement in symptoms Continue MiraLAX and Colace tolerated diet WBC trending down Continue cipro and flagyl while in the hospital Will discharge on flagyl only clinically improves (3) Elevated troponin: (4) CAD (coronary artery disease): Present on admission with severe abdominal tenderness Mostly due to demand ischemia from ELIZABETH and poor oral intake Troponin on admission 0.065, trending to 0.283, then down to 0.26 Denies any chest pain ECHO showed no wall motion abnormality with EF 60-65% Continue aspirin (5) CKD (chronic kidney disease), stage III: (6) ELIZABETH (acute kidney injury): Due to dehydration Creatinine on admission 2.1, then increased to 2.4 Baseline creatinine btw 1.4 and 1.6 creatinine improved to 1.4 Lisinopril resume on discharge Avoid nephrotoxic agents Check BMP within 1 week (7) Hypokalemia: Potassium stable Continue monitor (8) Prolonged QT interval: QTc improved Will not d/c on cipro due to increase risk of QTC prolongation Avoid QTC prolonging agent (9) Hypertension: BP elevated Lisinopril on hold due to ELIZABETH Lisinopril resumes on discharge Monitor BP (10) Bifascicular block: Stable, unchanged (11) GERD (gastroesophageal reflux disease): Continue PPI (12) S/P TAVR (transcatheter aortic valve replacement): Stable, no acute issues (13) AAA (abdominal aortic aneurysm): Stable on CT scan today (14) Hypothyroidism: Continue levothyroxine (15) DVT prophylaxis: SQ heparin CODE STATUS FULL CODE Disposition Will discharge home today Subjective Pt was seen and examined sitting in chair with no distress Pt said that he feels much better He said that the abdominal pain improved significantly Denies any chest pain, palpitation, dizziness and SOB Physical Exam Vital Signs (Past 24 Hours): Last Vital Signs Temp 36.6 C 11/05/18 11:21 Pulse 81 11/05/18 11:21 Resp 18 11/05/18 11:21 BP 175/78 H 11/05/18 11:21 Pulse Ox 97 03/15/19 11:21 Physical Exam: General- No acute distress Head- atraumatic Eyes- PERRL, EOMI, ENT- oropharynx clear Neck- supple, no JVD Lungs- clear to auscultation Heart- regular rhythm Abdomen- normal bowel sounds, mild abdominal tenderness with deep palpation Extremities- no calf tenderness Neuro- alert, oriented x 3; PERRL, EOMI; no facial palsy; no dysarthria Skin- warm & dry (1) Abdominal pain Abdominal location: unspecified location Qualified Code(s): R10.9 - Unspecified abdominal pain (2) Constipation Constipation type: unspecified constipation type Qualified Code(s): K59.00 - Constipation, unspecified
[2018-11-05] MEDS ORDERED: AMLODIPINE BESYLATE 5 MG TAB PO SCH (16:15)
--- NOTE | 2018-11-07 11:35 | Discharge Summary ---
Date of Service November 10, 2018 Admission HPI Per Admitting Provider 78-year-old male who presents to the ED with abdominal pain. Patient reports he woke up this morning and had lower abdominal discomfort. Of note, patient has been taking tramadol for increasing back pain over the past couple of weeks. He reports this normally causes constipation for him so he started taking an herbal supplement "colon cleanse" this week. He reports a bowel movement yesterday however was smaller than normal. He reports urinating without difficulty. He reports the back pain has been chronic since his surgery in August 2017. He had been participating in therapy, however 2 weeks ago was at work and twisted and developed increasing back pain. He reports chronic lower extremity weakness which is unchanged from his surgery in August 2017. He denies any bowel or bladder incontinence. No numbness or tingling to lower extremities. He denies chest pain and shortness of breath. No lightheadedness, dizziness, diaphoresis, syncopal events. He denies fevers and chills. No urinary symptoms. In the ED, patient underwent CT ABD/pelvis there is showing a large amount of stool within the colon. He received a soapsuds enema and has since had a bowel movement and reports marked improvement in his symptoms. Labs show a mild hypokalemia with potassium 3.2, creatinine 2.18 (baseline runs in the mid ones), initial troponin 0 0.065. EKG does not show any acute ST changes. Discharge Data Consultations 11/02/18 13:44 ED Decision to Admit Stat
--- NOTE | 2018-11-08 09:22 | Discharge Summary ---
Date of Service November 05, 2018 Admission HPI Per Admitting Provider 78-year-old male who presents to the ED with abdominal pain. Patient reports he woke up this morning and had lower abdominal discomfort. Of note, patient has been taking tramadol for increasing back pain over the past couple of weeks. He reports this normally causes constipation for him so he started taking an herbal supplement "colon cleanse" this week. He reports a bowel movement yesterday however was smaller than normal. He reports urinating without difficulty. He reports the back pain has been chronic since his surgery in August 2017. He had been participating in therapy, however 2 weeks ago was at work and twisted and developed increasing back pain. He reports chronic lower extremity weakness which is unchanged from his surgery in August 2017. He denies any bowel or bladder incontinence. No numbness or tingling to lower extremities. He denies chest pain and shortness of breath. No lightheadedness, dizziness, diaphoresis, syncopal events. He denies fevers and chills. No urinary symptoms. In the ED, patient underwent CT ABD/pelvis there is showing a large amount of stool within the colon. He received a soapsuds enema and has since had a bowel movement and reports marked improvement in his symptoms. Labs show a mild hypokalemia with potassium 3.2, creatinine 2.18 (baseline runs in the mid ones), initial troponin 0 0.065. EKG does not show any acute ST changes. Admission Exam Per Admitting Provider Constitutional: WD/WN, vitals as above Eyes: PERRL, conjunctivae normal, anicteric sclerae ENMT: external ear and nose normal, oropharynx normal Respiratory: normal respiratory effort, lungs clear to auscultation Cardiovascular: Rate/Rhythm: regular rate and regular rhythm Heart Sounds: + mu rmur (Systolic, grade 1/6) Vessels: normal peripheral pulses Extremities: no edema Gastrointestinal normal bowel sounds, soft, nontender, no hepatosplenomegaly Musculoskeletal: no cyanosis or clubbing, extremities motor strength 5/5 Skin: no rashes, warm and dry Neurologic: PERRL, EOMI, accommodation nl, no face palsy, no dysarthria Psychiatric: A+Ox3, euthymic affect Principal Diagnosis Abdominal pain Constipation Elevated troponin ELIZABETH Discharge Exam General- No acute distress Head- atraumatic Eyes- PERRL, EOMI, ENT- oropharynx clear Neck- supple, no JVD Lungs- clear to auscultation Heart- regular rhythm Abdomen- normal bowel sounds, mild abdominal tenderness with deep palpation Extremities- no calf tenderness Neuro- alert, oriented x 3; PERRL, EOMI; no facial palsy; no dysarthria Skin- warm & dry Discharge Data Allergies Allergy/AdvReac Type Severity Reaction Status Date / Time No Known Drug Allergies Allergy Unknown . Verified 11/02/18 11:06 Consultations 11/02/18 13:44 ED Decision to Admit Stat Ordered Studies 11/02/18 11:37 CT abd pelvis wo con Stat General- No acute distress Head- atraumatic Eyes- PERRL, EOMI, ENT- oropharynx clear Neck- supple, no JVD Lungs- clear to auscultation Heart- regular rhythm Abdomen- normal bowel sounds, mild abdominal tenderness with deep palpation Extremities- no calf tenderness Neuro- alert, oriented x 3; PERRL, EOMI; no facial palsy; no dysarthria Skin- warm & dry Hospital Course (1) Abdominal pain: (2) Constipation: Possible due to tramadol used CT ABD/pelvis showed a large amount of stool in the colon. Mild infiltration adjacent to the left colon suggests a nonspecific colitis. Received a soapsuds enema in the ED yesterday with subsequent bowel movement and improvement in symptoms Continue MiraLAX and Colace tolerated diet WBC trending down Continue cipro and flagyl while in the hospital Will discharge on flagyl only clinically improves (3) Elevated troponin: (4) CAD (coronary artery disease): Present on admission with severe abdominal tenderness Mostly due to demand ischemia from ELIZABETH and poor oral intake Troponin on admission 0.065, trending to 0.283, then down to 0.26 Denies any chest pain ECHO showed no wall motion abnormality with EF 60-65% Continue aspirin (5) CKD (chronic kidney disease), stage III: (6) ELIZABETH (acute kidney injury): Due to dehydration Creatinine on admission 2.1, then increased to 2.4 Baseline creatinine btw 1.4 and 1.6 creatinine improved to 1.4 Lisinopril resume on discharge Avoid nephrotoxic agents Check BMP within 1 week (7) Hypokalemia: Potassium stable Continue monitor (8) Prolonged QT interval: QTc improved Will not d/c on cipro due to increase risk of QTC prolongation Avoid QTC prolonging agent (9) Hypertension: BP elevated Lisinopril on hold due to ELIZABETH Lisinopril resumes on discharge Monitor BP (10) Bifascicular block: Stable, unchanged (11) GERD (gastroesophageal reflux disease): Continue PPI (12) S/P TAVR (transcatheter aortic valve replacement): Stable, no acute issues (13) AAA (abdominal aortic aneurysm): Stable on CT scan today (14) Hypothyroidism: Continue levothyroxine (15) DVT prophylaxis: SQ heparin CODE STATUS FULL CODE Disposition Will discharge home today Total Time Total Time Spent Total Time Spent (In Minutes): 35 minutes Total Time Includes: Examination of the Patient, Discharge Planning, Medication Reconciliation, Communication With Other Providers and Other Discharge Plan Discharge Items Patient Disposition: Home - Self-Care Reason For Visit: CONSTIPATION Discharge Diagnosis: Abdominal pain Constipation Elevated troponin ELIZABETH Discharge Goals: Decrease discomfort, Improve disease control, Improve function and Increase independence Activity: Resume your previous activity Activity Comment: As tolerated Non-emergency contact: Primary Care Provider Call non-emergency contact if: you have any medication questions and your temperature is above 101 Follow-up/Referrals: April Guthrie DO [Primary Care Provider] - Diet: Heart Healthy and Low Sodium (2gm) Addtl Provider Instructions: Follow up with your primary care provider Dr. Guthrie on 11/11 @ 11:05 AM Complete the course of antibiotic Check BMP in 1 week Avoid medication that can damage your kidney such as NSAIDs (Motrin, aleve, Naproxen, Ibuprofen, advil, ..) Monitor blood pressure Prescriptions: New metronidazole 500 mg Tablet 500 mg PO TID 4 Days Qty: 12 RF: 0 docusate sodium 100 mg Capsule 100 mg PO BID PRN (Reason: constipation) Qty: 30 RF: 0 Continued lisinopril 20 mg Tablet 20 mg PO DAILY RF: 0 aspirin [Aspir-81] 81 mg Tablet,Delayed Release (Dr/Ec) 81 mg PO DAILY RF: 0 simvastatin 40 mg Tablet 40 mg PO PM RF: 0 levothyroxine 88 mcg Tablet 88 mcg PO DAILY RF: 0 omeprazole 20 mg Tablet,Delayed Release (Dr/Ec) 20 mg PO DAILY RF: 0 acetaminophen 325 mg Tablet 650 mg PO Q6H PRN (Reason: Pain) RF: 0 cyanocobalamin (vitamin B-12) 1,000 mcg Tablet 1,000 mcg PO DAILY RF: 0 tramadol 50 mg Tablet PO PRN (Reason: Pain) RF: 0 loratadine [Claritin] 10 mg Tablet 10 mg PO DAILY RF: 0 Colon Herbal Cleanser Capsule 1 cap PO PRN (Reason: Constipation) RF: 0 biotin 5 mg Tablet 5 mg PO DAILY RF: 0 Stand-Alone Forms: Call Back Authorization, [facility] Discharge Orders: Discharge Order (Routine); Ordered 11/05/18 Ordered By: Emely Car Admission Data Admit Date/Time: 11/02/18 14:54 Attending Provider: Emely Car Admit Provider: Lucien Prajapati Primary Care Provider: April Guthrie Other Providers: Lucien Prajapati Service: Telemetry Other Interventions: Discharge Summary Assessment (RN) Last Done: 11/05/18 18:00 DC Date/Time DO NOT enter until pt leaves facility: 11/05/18 20:05
== END 2018-11-05 20:05 | disposition home or self-care (01) | DRG 683 ==
LOC: ED 10:27 → SUATTDRO 14:54 → 2S 14:54